=== PATIENT | male | born 1975 | race Caucasian/White ===

== ENCOUNTER 2021-05-01 01:10 | Emergency (ER) | payer MEDICARE, OTHER ==
[~2021-05-01] VITALS: Ht 185.4 cm; Wt 90.7 kg
[2021-05-01 01:38] VITALS: BP 150/78
--- NOTE | 2021-05-01 01:39 | NUR ---
URINE COLLECTED AND SENT TO LAB
--- NOTE | 2021-05-01 02:15 | NUR ---
COVID SWAB COLLECTED AND SENT TO LAB
[2021-05-01 02:33] LABS: BASOPHILS # (AUTO) 0.1 K/uL (0.0-0.2); BASOPHILS % (AUTO) 0.9 % (0.0-2.0); EOSINOPHILS % (AUTO) 0.6 % (0.0-6.0); HEMATOCRIT 43 % (39-51); HEMOGLOBIN 14.4 g/dL (13.5-17.5); LYMPHOCYTES # (AUTO) 1.9 K/uL (0.8-4.8); LYMPHOCYTES % (AUTO) 26.7 % (20.0-44.0); MEAN CORPUSCULAR HGB CONC 34 g/dl (31.0-36.0); MEAN CORPUSCULAR VOLUME 94 fL (80-96); MONOCYTES # (AUTO) 0.6 K/uL (0.1-1.30); MONOCYTES % (AUTO) 8.1 % (2.0-12.0); NEUTROPHILS # (AUTO) 4.4 K/uL (1.8-8.9); NEUTROPHILS % (AUTO) 63.7 % (43.0-81.0); PLATELET COUNT (AUTO) 418 K/uL (150-450); RED BLOOD CELL COUNT(AUTO) 4.53 MIL/uL (4.5-6.0); WHITE BLOOD COUNT (AUTO) 6.9 K/uL (4.3-11.0)
[2021-05-01 02:43] LABS: CALCIUM, SERUM 8.4 mg/dL (8.5-10.1); CARBON DIOXIDE 29 mmol/L (21-32); CHLORIDE 103 mmol/L (98-107); CREATININE 0.9 mg/dL (0.6-1.3); GLUCOSE 98 mg/dL (74-106); POTASSIUM 3.3 mmol/L (3.5-5.1); SODIUM SERUM 141 mmol/L (136-145); UREA NITROGEN, BLOOD 8 mg/dL (7-18)
[2021-05-01 02:49] LABS: ALANINE AMINOTRANSFERASE 22 U/L (12-78); ALCOHOL, BLOOD 101 mg/dL (0-0); ALKALINE PHOSPHATASE 80 U/L (46-116); ASPARTATE AMINOTRANSFERASE 14 U/L (15-37); BILIRUBIN,DIRECT 0.1 mg/dL (0.0-0.2); BILIRUBIN,TOTAL 0.3 mg/dL (0.2-1.0); TOTAL PROTEIN, SERUM 7.7 g/dL (6.4-8.2)
[2021-05-01 02:52] LABS: BILIRUBIN,URINE NEGATIVE (NEGATIVE); COLOR,URINE YELLOW (YELLOW); LEUKOCYTE ESTERASE ,URINE NEGATIVE (NEGATIVE); NITRITE, URINE NEGATIVE (NEGATIVE); PROTEIN,URINE NEGATIVE (NEGATIVE); UGLUCOSE NEGATIVE (NEGATIVE); UROBILINOGEN,URINE 0.2 EU/dL (0.2)
[2021-05-01 03:00] LABS: ACETAMINOPHEN < 2 ug/ml (10-30)
--- NOTE | 2021-05-01 08:56 | NUR ---
FAXED UPDATED FACE SHEET TO [facility].
--- NOTE | 2021-05-01 09:44 | NUR ---
Kristian from [facility] stated that pt. got accepted.
--- NOTE | 2021-05-01 10:48 | NUR ---
UNDER DR. GERARD
[2021-05-01] MEDS ORDERED: LORAZEPAM 1 MG TABLET ONE (10:59)
[2021-05-01] MEDS ORDERED: LORAZEPAM 1 MG TABLET PO ONE (11:00)
--- NOTE | 2021-05-01 11:15 | NUR ---
TRANSPORT HERE TO PICKUP PATIENT.
--- NOTE | 2021-05-01 11:20 | NUR ---
Patient discharged to [facility] in stable condition. Written and verbal after care instructions given. Patient verbalizes understanding of instruction.PT D/C TO [facility]. PT ambulatory with a steady gait. VSS. ALL BELONGINGS WITH PT.
== END 2021-05-01 11:20 ==
LOC: ER 01:14
DX: R45.851 Suicidal ideations (principal); F19.10 Other psychoactive substance abuse, uncomplicated; Z59.01 Sheltered homelessness; Z88.8 Allergy status to other drugs, medicaments and biological substances; Z20.822 Contact with and (suspected) exposure to COVID-19
CPT/HCPCS: 36415; 80048-TC; 80076-TC; 85025-TC; C9803; G0480

== ENCOUNTER 2022-02-17 08:48 | Emergency (ER) | payer MEDICARE, OTHER ==
[~2022-02-17] VITALS: Ht 182.9 cm; Wt 68.0 kg
--- NOTE | 2022-02-17 08:48 | NUR ---
BIBS C/O HEARING VOICE X2 MONTHS, WANTING [facility]UNTARY ADMISSION TO [facility] [place]SI WANTS TO WALK INTO TRAFFIC, DENIES HI. PT PLACED IN GOWN, SECURITY WANDED PT. PT BELONGINGS SECURED IN LOCKER. AWAITING MD ORDERS.
--- NOTE | 2022-02-17 09:02 | NUR ---
COVID TEST COLLECTED AND SENT
--- NOTE | 2022-02-17 15:31 | NUR ---
FAXED CLINICALS TO [facility].
[2022-02-17 17:02] LABS: BASOPHILS # (AUTO) 0.1 K/uL (0.0-0.2); BASOPHILS % (AUTO) 0.8 % (0.0-2.0); EOSINOPHILS % (AUTO) 2.2 % (0.0-6.0); HEMATOCRIT 42 % (39-51); HEMOGLOBIN 14.2 g/dL (13.5-17.5); LYMPHOCYTES # (AUTO) 1.7 K/uL (0.8-4.8); LYMPHOCYTES % (AUTO) 22.4 % (20.0-44.0); MEAN CORPUSCULAR HGB CONC 34 g/dl (31.0-36.0); MEAN CORPUSCULAR VOLUME 94 fL (80-96); MONOCYTES # (AUTO) 0.9 K/uL (0.1-1.30); MONOCYTES % (AUTO) 12.8 % (2.0-12.0); NEUTROPHILS # (AUTO) 4.6 K/uL (1.8-8.9); NEUTROPHILS % (AUTO) 61.8 % (43.0-81.0); PLATELET COUNT (AUTO) 372 K/uL (150-450); RED BLOOD CELL COUNT(AUTO) 4.46 MIL/uL (4.5-6.0); WHITE BLOOD COUNT (AUTO) 7.4 K/uL (4.3-11.0)
[2022-02-17 17:18] LABS: ALANINE AMINOTRANSFERASE 27 U/L (12-78); ALBUMIN 3.8 g/dL (3.4-5.0); ALCOHOL, BLOOD < 3 mg/dL (0-0); ALKALINE PHOSPHATASE 57 U/L (46-116); ASPARTATE AMINOTRANSFERASE 21 U/L (15-37); BILIRUBIN,DIRECT 0.2 mg/dL (0.0-0.2); CALCIUM, SERUM 8.9 mg/dL (8.5-10.1); CARBON DIOXIDE 31 mmol/L (21-32); CHLORIDE 102 mmol/L (98-107); CREATININE 0.9 mg/dL (0.6-1.3); GLUCOSE 92 mg/dL (74-106); POTASSIUM 3.6 mmol/L (3.5-5.1); SODIUM SERUM 138 mmol/L (136-145); TOTAL PROTEIN, SERUM 7.1 g/dL (6.4-8.2); UREA NITROGEN, BLOOD 14 mg/dL (7-18)
[2022-02-17 17:20] LABS: ACETAMINOPHEN 0 ug/ml (10-30)
--- NOTE | 2022-02-18 00:15 | NUR ---
PER ART, PT ACCEPTED TO [facility] UNDER DR MALONEY. NUMBER FOR REPORT [phone]. ROOM WILL BE GIVEN DURING REPORT.
--- NOTE | 2022-02-18 00:50 | NUR ---
[facility] ETA 75-90MIN
--- NOTE | 2022-02-18 01:04 | NUR ---
GAVE REPORT TO ONEL CERVANTES IN UNIT 2
--- NOTE | 2022-02-18 08:24 | NUR ---
NEW ETA: 1100 [facility] ([facility]).
--- NOTE | 2022-02-18 11:20 | NUR ---
Patient discharged to home in stable condition. Written and verbal after care instructions given. Patient verbalizes understanding of instruction.
[2022-02-18 12:19] VITALS: BP 111/70
== END 2022-02-18 12:20 | disposition home or self-care (01) ==
LOC: ER 09:10
DX: F29 Unspecified psychosis not due to a substance or known physiological condition (principal); F19.10 Other psychoactive substance abuse, uncomplicated; Z20.822 Contact with and (suspected) exposure to COVID-19; Z59.00 Homelessness unspecified
CPT/HCPCS: 36415; 80048-TC; 80076-TC; 85025-TC; C9803; G0480